=== PATIENT | female | born 1980 | race Hispanic/Latino ===

== ENCOUNTER 2021-03-20 05:17 | Emergency (ER) | payer SELFPAY ==
--- NOTE | 2021-03-20 06:40 | XRay Report ---
Orbits 5 views INDICATION: Injury FINDINGS: Paranasal sinuses appear clear. Visualized orbital matias are intact. No foreign body is def initely seen. If there is further concern a CT is recommended. Signer Name: Bryan Redd MD Signed: 03/20/2021 6:36 AM Workstation Name: [id number]
[2021-03-20] MEDS ORDERED: HYDROcodone/ACETAMINOPHEN 10-325MG TAB PO ONE (08:47)
[2021-03-20 09:01] VITALS: BP 130/72
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
== END 2021-03-20 11:38 | disposition home or self-care (01) ==
LOC: ED 05:17
DX: S05.12XA Contusion of eyeball and orbital tissues, left eye, initial encounter (principal); Y04.8XXA Assault by other bodily force, initial encounter; Z87.891 Personal history of nicotine dependence; Z90.49 Acquired absence of other specified parts of digestive tract; Y93.89 Activity, other specified; Y92.89 Other specified places as the place of occurrence of the external cause; Y99.8 Other external cause status
CPT/HCPCS: 70200; 70480; 70486; 99284